=== PATIENT | female | born 1995 | race Caucasian/White ===

== ENCOUNTER 2017-02-08 13:07 | Emergency (ER) | payer MEDICAID ==
[~2017-02-08] VITALS: Ht 160 cm; Wt 70.8 kg
[~2017-02-08 13:07] MED LIST: PREN-96 PO
[2017-02-08 14:15] LABS: Urine Bilirubin Negative (Negative); Urine Blood Negative /uL (Negative); Urine Color Yellow (Yellow); Urine Glucose Normal (Normal); Urine Mucus FEW (None Seen); Urine Nitrite Negative (Negative); Urine RBC 1 /hpf (0 - 4); Urine Squamous Epithelial Cell MOD /hpf (<5)
[2017-02-08 14:19] LABS: Urine Ketone 1+ (Negative)
[2017-02-08 15:34] VITALS: BP 133/81
== END 2017-02-08 16:07 | disposition home or self-care (01) ==
LOC: ER 13:07
DX: O23.41 Unspecified infection of urinary tract in pregnancy, first trimester (principal); Z3A.09 9 weeks gestation of pregnancy
CPT/HCPCS: 36415; 76801; 81001; 84702

== ENCOUNTER 2017-03-01 10:47 | Emergency (ER) | payer MEDICAID ==
[~2017-03-01] VITALS: Ht 160 cm; Wt 71.7 kg
[2017-03-01 12:55] LABS: Urine Bilirubin Negative (Negative); Urine Blood Negative /uL (Negative); Urine Color Yellow (Yellow); Urine Glucose Normal (Normal); Urine Ketone Negative (Negative); Urine Mucus FEW (None Seen); Urine Nitrite Negative (Negative); Urine RBC 3 /hpf (0 - 4); Urine Squamous Epithelial Cell FEW /hpf (<5); Urine Urobilinogen Normal (Negative); Urine pH 6.5 (5.0-8.0)
[2017-03-01 14:27] VITALS: BP 117/71
== END 2017-03-01 18:28 | disposition home or self-care (01) ==
LOC: ER 10:47
DX: O20.0 Threatened abortion (principal); Z3A.12 12 weeks gestation of pregnancy
CPT/HCPCS: 36415; 76801; 81001; 84702

== ENCOUNTER 2017-06-01 15:11 | Emergency (ER) | payer MEDICAID ==
[~2017-06-01] VITALS: Ht 160 cm; Wt 76.2 kg
[2017-06-01 16:20] LABS: Basophils # (auto) 0 uL; Basophils % (auto) 0.1 % (0.0-2.0); CONDITION Y; Eosinophils # (auto) 0.1 uL; Eosinophils % (auto) 0.8 % (0.0-7.0); Hematocrit 35.6 % (36.0-46.0); Hemoglobin 12.3 g/dL (12.2-16.2); Lymphocytes # (auto) 2.2 uL; Lymphocytes % (auto) 15.1 % (10.0-50.0); Mean Corpuscular Hemoglobin 30.7 pg (28.0-32.0); Mean Corpuscular Hgb Conc. 34.5 g/dL (32.0-36.0); Mean Corpuscular Volume 88.9 fL (80.0-100.0); Mean Platelet Volume 9.9 fL (7.4-10.4); Monocytes # (auto) 0.8 uL; Monocytes % (auto) 5.9 % (0.0-12.0); Neutrophils # (auto) 11.2 uL; Neutrophils % (auto) 78.1 % (37.0-80.0); Platelet Count (auto) 228 10^3/uL (140-450); Red Cell Distribution Width 14.3 % (11.6-16.0); White Blood Cell 14.3 10^3/uL (4.4-10.8)
[2017-06-01 16:46] LABS: Albumin 2.6 g/dL (3.4-5.0); BUN/Creatinine Ratio 17.3; Bilirubin, Total 0.2 mg/dL (0.2-1.0); Calcium 8.8 mg/dL (8.5-10.1); Potassium 3.9 mmol/L (3.5-5.1); Total Protein 6.8 g/dL (6.4-8.2)
[2017-06-01 17:50] VITALS: BP 132/83
[2017-06-01 20:21] LABS: Urine Bilirubin Negative (Negative); Urine Blood Negative /uL (Negative); Urine Color Yellow (Yellow); Urine Glucose Normal (Normal); Urine Ketone Negative (Negative); Urine Nitrite Negative (Negative); Urine RBC 3 /hpf (0 - 4); Urine Squamous Epithelial Cell FEW /hpf (<5); Urine Urobilinogen Normal (Negative)
== END 2017-06-01 20:35 | disposition home or self-care (01) ==
LOC: ER 15:15
DX: O26.892 Other specified pregnancy related conditions, second trimester (principal); J20.9 Acute bronchitis, unspecified; Z3A.22 22 weeks gestation of pregnancy
CPT/HCPCS: 36415; 80053; 81001; 84702; 85025

== ENCOUNTER 2017-09-03 06:50 | Inpatient (IN) | payer MEDICAID ==
[2017-09-03] VITALS (7 sets, daily range): BP systolic 102–128; BP diastolic 53–77
[~2017-09-03] VITALS: Ht 160 cm; Wt 86.2 kg
[2017-09-03] MEDS: LACTATED RINGER'S 1,000 ML IV SCH ×3 (07:39→23:39)
[2017-09-03 08:16] LABS: Urine RBC None Seen /hpf (0 - 4)
[2017-09-03 08:20] LABS: Eosinophils # (auto) 0 uL; Neutrophils # (auto) 8.9 uL; Nucleated Red Blood Cells % 0.1 %
[2017-09-03 08:22] LABS: Basophils # (auto) 0 uL; Basophils % (auto) 0.4 % (0.0-2.0); Eosinophils % (auto) 0.1 % (0.0-7.0); Hematocrit 33.8 % (36.0-46.0); Lymphocytes # (auto) 2.4 uL; Lymphocytes % (auto) 19.5 % (10.0-50.0); Mean Corpuscular Hemoglobin 27.1 pg (28.0-32.0); Mean Corpuscular Hgb Conc. 32.5 g/dL (32.0-36.0); Mean Corpuscular Volume 83.3 fL (80.0-100.0); Mean Platelet Volume 9.6 fL (6.9-10.8); Monocytes # (auto) 0.7 uL; Monocytes % (auto) 5.9 % (0.0-12.0); Neutrophils % (auto) 74.1 % (37.0-80.0); Platelet Count (auto) 166 10^3/uL (140-450); Red Cell Distribution Width 16.4 % (11.8-14.3); White Blood Cell 12.1 10^3/uL (4.4-10.8)
[2017-09-03 08:23] LABS: Urine Bilirubin Negative (Negative); Urine Blood Negative /uL (Negative); Urine Color Yellow (Yellow); Urine Glucose Normal (Normal); Urine Ketone Negative (Negative); Urine Mucus FEW (None Seen); Urine Nitrite Negative (Negative); Urine Squamous Epithelial Cell FEW /hpf (<5); Urine pH 6.5 (5.0-8.0)
[2017-09-03 08:35] LABS: INR 0.88 (0.9-1.15); Prothrombin Time 9.6 sec (9.37-12.3)
[2017-09-03 08:40] LABS: Albumin 2.5 g/dL (3.4-5.0); BUN/Creatinine Ratio 10.3; Bilirubin, Total 0.4 mg/dL (0.2-1.0); Calcium 8.3 mg/dL (8.5-10.1); Potassium 3.8 mmol/L (3.5-5.1); Total Protein 6.6 g/dL (6.4-8.2)
[2017-09-03] MEDS ORDERED: fentaNYL CITRATE 100 MCG/2 ML VL ONE (11:30)
[2017-09-03] MEDS ORDERED: OXYTOCIN 10 UNIT/ML 10ML VIAL ONE (11:31)
[2017-09-03] MEDS ORDERED: SODIUM CHLORIDE LOCK 10 ML ONE ×3 (11:31→11:33)
[2017-09-03] MEDS ORDERED: PHENYLEPHRINE HCL 10 MG/ML VL ONE (11:31)
[2017-09-03] MEDS ORDERED: ceFAZolin 1GM VL ONE ×2 (11:31→11:58)
[2017-09-03] MEDS ORDERED: ONDANSETRON HCL 4 MG/2 ML VIAL ONE (11:31)
[2017-09-03] MEDS ORDERED: diphenhdrAMINE HCL 50 MG/1 ML VL ONE (11:37)
[2017-09-03] MEDS ORDERED: LACT. RINGERS/OXYTOCIN 20UNITS 1,000 ML IV SCH (12:33)
[2017-09-03] MEDS ORDERED: ceFAZolin 1GM/50ML 50 ML IV SCH (12:45)
[2017-09-03] MEDS ORDERED: ONDANSETRON HCL 4 MG/2 ML VIAL IV PRN (12:45)
[2017-09-03] MEDS ORDERED: HYDROmorphone HCL 2 MG/ML VL IV PRN (12:45)
[2017-09-03] MEDS ORDERED: KETOROLAC TROMETH 30 MG/ML 1ML VIAL IV PRN ×2 (12:45→13:00)
[2017-09-03] MEDS ORDERED: NALOXONE HCL 0.4 MG/ML VIAL IV PRN (13:00)
[2017-09-03] MEDS ORDERED: DEXAMETHASONE SOD PHOS 10MG/1ML VIAL INJ IV PRN (13:00)
[2017-09-03] MEDS ORDERED: NALBUPHINE HCL 10 MG/1ml INJECTION SUBCUT ONE (13:00)
[2017-09-03 20:07] LABS: Basophils # (auto) 0.1 uL; Basophils % (auto) 0.5 % (0.0-2.0); Eosinophils # (auto) 0 uL; Hematocrit 32.5 % (36.0-46.0); Hemoglobin 10.6 g/dL (12.2-16.2); Lymphocytes # (auto) 1.8 uL; Lymphocytes % (auto) 12.8 % (10.0-50.0); Mean Corpuscular Hemoglobin 27.4 pg (28.0-32.0); Mean Corpuscular Hgb Conc. 32.6 g/dL (32.0-36.0); Mean Corpuscular Volume 83.9 fL (80.0-100.0); Mean Platelet Volume 9.6 fL (6.9-10.8); Monocytes # (auto) 0.8 uL; Monocytes % (auto) 6.1 % (0.0-12.0); Neutrophils # (auto) 11.2 uL; Neutrophils % (auto) 80.6 % (37.0-80.0); Nucleated Red Blood Cells % 0.1 %; Platelet Count (auto) 156 10^3/uL (140-450); Red Cell Distribution Width 16.3 % (11.8-14.3); White Blood Cell 13.9 10^3/uL (4.4-10.8)
[2017-09-03] MEDS: ceFAZolin 1GM/50ML 50 ML IV SCH (20:16)
[2017-09-03] MEDS: KETOROLAC TROMETH 30 MG/ML 1ML VIAL IV PRN (22:45)
[2017-09-04] MEDS: ceFAZolin 1GM/50ML 50 ML IV SCH ×2 (04:19→12:24)
[2017-09-04] MEDS: KETOROLAC TROMETH 30 MG/ML 1ML VIAL IV PRN ×2 (04:22→10:48)
[2017-09-04 04:26] VITALS: BP 104/57
[2017-09-04 06:29] LABS: Basophils # (auto) 0.1 uL; Basophils % (auto) 0.9 % (0.0-2.0); Eosinophils # (auto) 0 uL; Eosinophils % (auto) 0.2 % (0.0-7.0); Hematocrit 28.1 % (36.0-46.0); Hemoglobin 9.4 g/dL (12.2-16.2); Lymphocytes % (auto) 18.7 % (10.0-50.0); Mean Corpuscular Hemoglobin 27.7 pg (28.0-32.0); Mean Corpuscular Hgb Conc. 33.2 g/dL (32.0-36.0); Mean Corpuscular Volume 83.3 fL (80.0-100.0); Mean Platelet Volume 9.1 fL (6.9-10.8); Monocytes # (auto) 0.7 uL; Monocytes % (auto) 6.2 % (0.0-12.0); Nucleated Red Blood Cells % 0.1 %; Platelet Count (auto) 142 10^3/uL (140-450); Red Cell Distribution Width 16.4 % (11.8-14.3); White Blood Cell 10.9 10^3/uL (4.4-10.8)
[2017-09-04] MEDS: LACTATED RINGER'S 1,000 ML IV SCH ×3 (07:30→23:39)
[2017-09-04 08:00] VITALS: BP 124/73
[2017-09-04 12:00] VITALS: BP 122/75
[2017-09-04] MEDS ORDERED: HYDROcodone-ACET 5/325MG TAB PO PRN ×2 (13:45)
[2017-09-04 16:12] VITALS: BP 119/70
[2017-09-04] MEDS: IBUPROFEN 800 MG TAB PO PRN (19:25)
[2017-09-04 19:36] VITALS: BP 129/73
[2017-09-04] MEDS: DOCUSATE SOD 100 MG CAP PO SCH (21:55)
[2017-09-04 23:32] VITALS: BP 105/51
[2017-09-05 03:16] VITALS: BP 109/62
[2017-09-05] MEDS: IBUPROFEN 800 MG TAB PO PRN ×2 (03:29→17:15)
[2017-09-05] MEDS: LACTATED RINGER'S 1,000 ML IV SCH ×2 (07:39→15:39)
[2017-09-05 08:00] VITALS: BP 122/79
[2017-09-05] MEDS: DOCUSATE SOD 100 MG CAP PO SCH (10:30)
[2017-09-05 11:30] VITALS: BP 128/71
[2017-09-05 16:00] VITALS: BP 111/66
[2017-09-05] MEDS ORDERED: MEASLES, MUMPS & RUBELLA VAC(MMRII) 0.5ML SC ONE (18:45)
[2017-09-05 19:31] VITALS: BP 113/78
[2017-09-05 21:30] VITALS: BP 119/70
== END 2017-09-05 21:30 | disposition home or self-care (01) | DRG 540 ==
LOC: LDRP 06:50
PROVIDERS: ADMIT Obstetrics & Gynecology; ATTEND Obstetrics & Gynecology
PROC: 10D00Z1 Extraction of Products of Conception, Low, Open Approach (ICD-10-PCS; principal; 2017-09-03 11:48)
DX: O34.211 Maternal care for low transverse scar from previous cesarean delivery (principal); Z23 Encounter for immunization; Z37.0 Single live birth; Z3A.39 39 weeks gestation of pregnancy
CPT/HCPCS: 36415; 51702; 59025; 80053; 81001; 81002; 85025; 85610; 85730; 86850; 86900; 86901; 94762; 96365; 96366; 96372; 96375; J0690; J1885; J2405; J2590